=== PATIENT | male | born 1950 | race Caucasian/White ===

== ENCOUNTER 2022-09-29 10:42 | Outpatient (CLI) | payer MEDICARE ==
--- NOTE | 2022-09-29 11:39 | XRAY Report ---
PROCEDURE: Cervical Spine 2 View INDICATIONS: NECK PAIN TECHNIQUE: 3 view(s) of the cervical spine were acquired. COMPARISON: None. FINDINGS: Bones: Multilevel anterolisthesis, of L2 on L3, L3 on L4, and L4 and L5. Reversal of the normal cervi rohit lordosis at L. Moderate overall superimposed spondylosis and chronic appearing bone fragments adj acent to the spinous processes of C6 and C7. Endplate deformities are favored to be chronic. Soft tissues: No prevertebral soft tissue swelling. IMPRESSION: Moderate spondylosis and multilevel spondylolisthesis as above. If there is high concern for further derangement, consider MRI evaluation. Reviewed by: Ben Vallecillo MD on 09/29/2022 10:38 AM [facility] Approved by: Ben Vallecillo MD on 09/29/2022 10:38 AM [facility] Station ID: [id number]
== END 2022-09-29 10:43 | disposition home or self-care (01) ==
LOC: DI 10:42
PROVIDERS: ATTEND Nurse Practitioner
DX: M47.812 Spondylosis without myelopathy or radiculopathy, cervical region (principal)

== ENCOUNTER 2024-01-16 07:56 | Outpatient (CLI) | payer MEDICARE ==
[2024-01-16 12:07] LABS: BASOPHILS # (AUTO) 0.1 10^3/uL (0.0-0.1); BASOPHILS % (AUTO) 0.8 %; EOSINOPHILS # (AUTO) 0.2 10^3/uL (0.0-0.7); HCT - HEMATOCRIT 48.9 % (42.0-52.0); HGB - HEMOGLOBIN 16.4 g/dL (14.0-18.0); LYMPHOCYTES # (AUTO) 1.7 10^3/uL (1.5-3.5); LYMPHOCYTES % (AUTO) 27.5 %; MEAN CORPUSCULAR HEMOGLOBIN 32.3 pg (27.0-31.0); MEAN CORPUSCULAR HGB CONC 33.5 g/dL (32.0-36.0); MEAN CORPUSCULAR VOLUME 96.4 fL (80.0-94.0); MEAN PLATELET VOLUME 10.9 fL (7.4-11.4); MONOCYTES # (AUTO) 0.7 10^3/uL (0.0-1.0); MONOCYTES % (AUTO) 11.6 %; NEUTROPHILS # (AUTO) 3.6 10^3/uL (1.5-6.6); NEUTROPHILS % (AUTO) 56.9 %; PLT - PLATELET COUNT 257 10^3/uL (130-450); RED BLOOD COUNT 5.07 10^6/uL (4.70-6.10); RED CELL DISTRIBUTION WIDTH 12.1 % (12.0-15.0); WHITE BLOOD COUNT 6.3 x10^3/uL (4.8-10.8)
[2024-01-16 12:21] LABS: ALBUMIN 4.2 g/dL (3.2-5.5); ALBUMIN/GLOBULIN RATIO 1.6 (1.0-2.2); ALKALINE PHOSPHATASE 69 IU/L (42-121); ALT ALANINE AMINOTRANSFERASE 19 IU/L (10-60); AST ASPARTATE AMINOTRANSFERASE 20 IU/L (10-42); BILIRUBIN,TOTAL 0.5 mg/dL (0.2-1.0); BUN - BLOOD UREA NITROGEN 16 mg/dL (6-20); CARBON DIOXIDE - CO2 32 mmol/L (21-32); CHLORIDE 103 mmol/L (101-111); CHOL/HDL RATIO 3.3 (<5.0); CHOLESTEROL 150 mg/dL; CREATININE 1.1 mg/dL (0.6-1.3); GFR - MDRD 66 (>89); GLUCOSE 101 mg/dL (74-104); HDL CHOLESTEROL 46 mg/dL; LDL CHOLESTEROL,CALCULATED 76 mg/dL; LDL/HDL RATIO 1.7 (<3.6); POTASSIUM 3.4 mmol/L (3.5-4.5); SODIUM 140 mmol/L (135-145); TOTAL PROTEIN 6.8 g/dL (6.4-8.9); TRIGLYCERIDES 139 mg/dL (48-352); VLDL CHOLESTEROL 28 mg/dL
[2024-01-16 12:47] LABS: ESTIMATED AVERAGE GLUCOSE 126 mg/dL (70-100)
== END 2024-01-16 07:57 | disposition home or self-care (01) ==
LOC: LAB.N 07:56
PROVIDERS: ATTEND Family Medicine
DX: E78.5 Hyperlipidemia, unspecified (principal); I10 Essential (primary) hypertension
CPT/HCPCS: 36415; 80053; 80061; 83036; 83721; 85025

== ENCOUNTER 2024-03-23 13:33 | Outpatient (CLI) | payer MEDICARE | END 2024-03-23 13:34 | disposition home or self-care (01) | LOC: LAB.N 13:33 | PROVIDERS: ATTEND Family Medicine | DX: R97.20 Elevated prostate specific antigen [PSA] (principal) | CPT/HCPCS: 36415; 84153 ==

== ENCOUNTER 2024-05-29 09:33 | Day surgery (SDC) | payer MEDICARE ==
[2024-05-29] MEDS: LACTATED RINGERS 1,000 ML IV ONE (10:00)
[2024-05-29 10:14] VITALS: O2SAT 96
--- NOTE | 2024-05-29 10:40 | ANESTHESIA ---
Pre-Anesthesia VS, & Labs - Diagnosis screening/gerd - Procedure colonoscopy, egd Vital Signs: Temp Pulse Resp BP Pulse Ox O2 Flow Rate 36.2 C L 64 14 147/76 H 96 05/29/24 10:08 05/29/24 10:08 05/29/24 10:08 05/29/24 10:08 05/29/24 10:08 Height: 5 ft 9 in Weight (kg): 86.1 kg Body Mass Index: 28.0 BMI Classification: Overweight - NPO Other (last prep at 7am) Home Medications and Allergies Home Medications: Ambulatory Orders Atorvastatin Calcium 40 mg PO HS 05/29/24 Chlorpheniramine Maleate 1 tab PO DAILY PRN 05/29/24 Chlorthalidone 1 tab PO DAILY 05/29/24 Cholecalciferol (Vitamin D3) [Vitamin D3] 125 mcg PO DAILY 05/29/24 Loratadine [Allergy Relief] 10 mg PO DAILY PRN 05/29/24 Losartan Potassium 100 mg PO DAILY 05/29/24 amLODIPine [Norvasc] 1 tab PO DAILY 05/29/24 Atorvastatin Calcium 40 mg PO HS 05/29/24 Chlorpheniramine Maleate 1 tab PO DAILY PRN 05/29/24 Chlorthalidone 1 tab PO DAILY 05/29/24 Cholecalciferol (Vitamin D3) [Vitamin D3] 125 mcg PO DAILY 05/29/24 Loratadine [Allergy Relief] 10 mg PO DAILY PRN 05/29/24 Losartan Potassium 100 mg PO DAILY 05/29/24 amLODIPine [Norvasc] 1 tab PO DAILY 05/29/24 Allergies/Adverse Reactions: Allergies Allergy/AdvReac Type Severity Reaction Status Date / Time Penicillins AdvReac Rash Verified 05/28/24 13:23 Sulfa (Sulfonamide AdvReac Rash Verified 05/28/24 13:23 Antibiotics) Anes History & Medical History - Anesthetic History Anesthesia Complications: reports: No previous complications - Medical History Cardiovascular: reports: Hypertension, High cholesterol, Murmur Pulmonary: reports: None Gastrointestinal: reports: None Urinary: reports: None Musculoskeletal: reports: Osteoarthritis Endocrine/Autoimmune: reports: None Skin: reports: None Smoking Status: Never smoker Psychosocial: reports: Alcohol (5 beers weekly) - Surgical History Orthopedic: reports: Knee replacement Exam General: Alert, Oriented x3 Dental: WNL Mouth Opening: Greater than 4 Fingerbreadths Neck Mobility: Normal Mallampati classification: II Thyromental Distance: greater than 6 cm Respiratory: Lungs clear Cardiovascular: Regular rate, Other (4/6 systolic murmur) Plan Anesthesia Type: Total IV Consent for Procedure(s) Verified and Reviewed: Yes Code Status: Attempt Resuscitation ASA classification: 2-Mild systemic disease Is this case an emergency?: Yes
[2024-05-29] MEDS ORDERED: LIDOCAINE-MPF 2% 5 ML VIAL ONE (10:42)
[2024-05-29] MEDS ORDERED: PROPOFOL 500 MG/50 ML 500 MG/50 ML VIAL ONE (10:42)
[2024-05-29] MEDS ORDERED: PROPOFOL 200 MG/20 ML VIAL IVP ONE (12:17)
[2024-05-29] MEDS: LACTATED RINGERS 600 ML IV ONE (12:42)
[2024-05-29 13:00] VITALS: BP 111/76
--- NOTE | 2024-05-29 13:56 | ANESTHESIA POST OP EVALUATION ---
Anesthesia Post Eval - Post Anesthesia Eval Vitals: Last Vital Signs Temp 36.2 C L 05/29/24 12:57 Pulse 63 05/29/24 12:57 Resp 17 05/29/24 12:57 BP 111/76 05/29/24 12:57 Pulse Ox 96 05/29/24 12:57 O2 Flow Rate CV Function Including HR & BP: Stable Pain Control: Satisfactory Nausea & Vomiting: Negative Mental Status: Baseline Respiratory Status: Airway Patent Hydration Status: Satisfactory Anesthesia Complications: None
== END 2024-05-29 09:34 | disposition home or self-care (01) ==
LOC: SDS 09:33
PROVIDERS: ATTEND Surgery
PROC: 0DB38ZX Excision of Lower Esophagus, Via Natural or Artificial Opening Endoscopic, Diagnostic (ICD-10-PCS; 2024-05-29)
PROC: 0DB78ZX Excision of Stomach, Pylorus, Via Natural or Artificial Opening Endoscopic, Diagnostic (ICD-10-PCS; 2024-05-29)
PROC: 0DB68ZX Excision of Stomach, Via Natural or Artificial Opening Endoscopic, Diagnostic (ICD-10-PCS; 2024-05-29)
PROC: 0DB28ZX Excision of Middle Esophagus, Via Natural or Artificial Opening Endoscopic, Diagnostic (ICD-10-PCS; 2024-05-29)
PROC: 0DBK8ZZ Excision of Ascending Colon, Via Natural or Artificial Opening Endoscopic (ICD-10-PCS; principal; 2024-05-29 11:00)
PROC: 0DBH8ZX Excision of Cecum, Via Natural or Artificial Opening Endoscopic, Diagnostic (ICD-10-PCS; 2024-05-29 11:00)
DX: Z12.11 Encounter for screening for malignant neoplasm of colon (principal); D12.2 Benign neoplasm of ascending colon; K63.5 Polyp of colon; K57.30 Diverticulosis of large intestine without perforation or abscess without bleeding; R12 Heartburn; K29.50 Unspecified chronic gastritis without bleeding; Z80.0 Family history of malignant neoplasm of digestive organs
CPT/HCPCS: 43239; 45380; J7120